=== PATIENT | male | born 1985 | race Caucasian/White ===

== ENCOUNTER 2016-08-23 20:58 | Emergency (ER) | payer OTHER | END 2016-08-23 21:16 | disposition home or self-care (01) | LOC: ER1 20:58 | DX: M25.521 Pain in right elbow (principal) | CPT/HCPCS: 73080; 96372; 99283; J1885 ==

== ENCOUNTER 2021-03-11 07:50 | Emergency (ER) | payer OTHER | END 2021-03-11 09:37 | disposition home or self-care (01) | LOC: ER1 07:50 | DX: S39.012A Strain of muscle, fascia and tendon of lower back, initial encounter (principal); S29.012A Strain of muscle and tendon of back wall of thorax, initial encounter; S23.3XXA Sprain of ligaments of thoracic spine, initial encounter; S33.5XXA Sprain of ligaments of lumbar spine, initial encounter; X50.9XXA Other and unspecified overexertion or strenuous movements or postures, initial encounter | CPT/HCPCS: 72072; 72100; 99283 ==

== ENCOUNTER 2021-09-17 18:37 | Emergency (ER) | payer OTHER ==
[2021-09-17] MEDS ORDERED: IBUPROFEN600 MG PO (23:06)
== END 2021-09-17 23:20 | disposition home or self-care (01) ==
LOC: ER1 18:37
DX: M25.511 Pain in right shoulder (principal)
CPT/HCPCS: 73030; 99283

== ENCOUNTER 2021-11-20 06:57 | Emergency (ER) | payer OTHER ==
[~2021-11-20 06:57] MED LIST: IBUPROFEN600 MG PO
== END 2021-11-20 08:42 | disposition home or self-care (01) ==
LOC: ER1 06:57
DX: R51.9 Headache, unspecified (principal); Z90.89 Acquired absence of other organs
CPT/HCPCS: 96374; 96375; 99283; J1885; J2765